=== PATIENT | female | born 1940 | race African-American/Black ===

== ENCOUNTER 2017-05-16 20:53 | Emergency (ER) | payer MEDICARE, OTHER ==
[~2017-05-16] VITALS: Ht 162.6 cm; Wt 59.0 kg
[2017-05-16 21:00] VITALS: BP 197/87
--- NOTE | 2017-05-16 21:08 | Emergency Room Report ---
History of Present Illness General Chief Complaint: Pain Source: Patient, Family Member Present Illness HPI This is a 76-year-old female with history of high blood pressure, renal insufficiency and mostly wheelchair-bound. She presents with a head injury. She's fell from a wheelchair and hit her head. No loss of consciousness. This occurred acutely tonight. Also complaining of pain to the left hand. No fever chills denies nausea vomiting. No focal deficit. She is taking aspirin. Allergies: Coded Allergies: NIFEDIPINE (Verified Allergy, Mild, 05/16/17) Patient History Past Medical History: see triage record, old chart reviewed Past Surgical History: other Pertinent Family History: none Social History: Denies: smoking Now: No Immunizations: other Reviewed Nursing Documentation: PMH: Agreed, PSxH: Agreed Nursing Documentation-PMH Hx Hypertension: Yes Hx Diabetes: Yes Hx Cancer: Yes - Breast and thyroid Hx Dialysis: Yes History Of Psychiatric Problem: No Hx Neurological Problems: Yes - Brain surgery Review of Systems Eye: Denies: eye pain, blurred vision ENT: Denies: ear pain, nose congestion, throat swelling Respiratory: Denies: cough, shortness of breath Cardiovascular: Denies: chest pain, palpitations Gastrointestinal: Denies: abdominal pain, diarrhea, nausea, vomiting Musculoskeletal: Denies: back pain, joint pain Skin: Denies: rash Neurological: Denies: headache, numbness Endocrine: Denies: increased thirst, increased urine Hematologic/Lymphatic: Denies: easy bruising All Other Systems: negative except mentioned in HPI Physical Exam Vital Signs Date Time Temp Pulse Resp B/P (MAP) Pulse Ox O2 Delivery O2 Flow Rate FiO2 05/16/17 20:45 80 16 204/102 Room Air vitals with high blood pressure Sp02 EP Interpretation: reviewed, normal General Appearance: well appearing, no apparent distress, alert Head: normocephalic, other - 3 cm hematoma to the midforehead. Eyes: bilateral eye PERRL, bilateral eye EOMI ENT: hearing grossly normal, normal pharynx Neck: full range of motion, supple, no meningismus Respiratory: chest non-tender, lungs clear, normal breath sounds Cardiovascular #1: regular rate, rhythm, no murmur Gastrointestinal: normal bowel sounds, non tender, no mass, no organomegaly, no bruit, non-distended Musculoskeletal: back normal, normal range of motion, other - Tenderness across the fingers on the left hand. No deformity however. Psychiatric: mood/affect normal Skin: warm/dry Medical Decision Making Diagnostic Impression: Primary Impression: Head injury, acute, without loss of consciousness Qualified Codes: S09.90XA - Unspecified injury of head, initial encounter Additional Impressions: Scalp hematoma Qualified Codes: S00.03XA - Contusion of scalp, initial encounter Contusion of left hand including fingers Qualified Codes: S60.222A - Contusion of left hand, initial encounter; S60.00XA - Contusion of unspecified finger without damage to nail, initial encounter ER Course Present with a fall with head injury. She has a scalp hematoma but no intracranial bleed or fracture. We'll discharge home. Other X-Ray Diagnostic Results Other X-Ray Diagnostic Results : X-Ray ordered: X-rays left hand # of Views/Limited Vs Complete: 3 View Indication: Pain EP Interpretation: Yes Interpretation: no dislocation, no soft tissue swelling, no fractures Impression: No acute disease Electronically Signed by: Electronically signed by Leo Alas MD CT/MRI/US Diagnostic Results CT/MRI/US Diagnostic Results : Imaging Test Ordered: CT head Impression read by radiologist. Chronic changes. No acute bleed. Last Vital Signs Date Time Temp Pulse Resp B/P (MAP) Pulse Ox O2 Delivery O2 Flow Rate FiO2 05/16/17 20:45 80 16 204/102 Room Air Status: improved Disposition: XFER SNF Condition: Stable Additional Instructions: Hold aspirin for one week. Followup with your DrMatt in 7 days. Return if symptom worsen. LEO ALAS M.D. May 16, 2017 21:08
[2017-05-16] MEDS ORDERED: Norco 5mg/325mg tab ORAL ONE (21:15)
[2017-05-16] MEDS ORDERED: Acetaminophen 500mg (ES) tab ORAL ONE (21:15)
[2017-05-16] MEDS ORDERED: cloNIDine 0.2mg Tab ORAL ONE (22:00)
[2017-05-17 00:36] VITALS: BP 122/64
--- NOTE | 2017-05-17 09:56 | Diagnostic Imaging Report ---
Indication: Trauma to the head. Headache Technique: Contiguous 5 mm thick transaxial imaging of the head obtained in a Siem[employer] Sensation [address] scanner. Soft tissue and bone windows generated. Automatic Exposure Control was utilized. Total Dose length Product (DLP): [address] Dose Index Volume (CTDIvol): 70.38, 0.15 mGy Comparison: none Findings: There is moderate prominence of the ventricles, basal cisterns, and cerebral sulci consistent with atrophy. Moderate, nonspecific, white matter hypoattenuation is noted throughout the brain consistent with chronic small vessel disease. There is no midline shift, edema, acute hemorrhage, mass effect, or abnormal extra-axial fluid collections. Bones and extra osseous soft tissues are unremarkable. Left parietal craniotomy is noted. There is a frontal cephalhematoma. Impression: No acute intracranial bleed, mass effect or edema. There is a left parietal craniotomy noted. Moderate atrophy of the brain. Evidence of chronic small vessel disease involving white matter tracts. Frontal scalp contusion The CT scanner at [facility] is accredited by the [employer] and the scans are performed using dose optimization techniques as appropriate to a performed exam including Automatic Exposure control.
--- NOTE | 2017-05-17 11:02 | Diagnostic Imaging Report ---
Indication: pain Findings: 3 views of the left hand were obtained. No fracture definitely identified. The bones are osteopenic. Vascular calcifications are present. Generalized joint space narrowing noted throughout the hand and wrist. Impression: No acute injury appreciated
== END 2017-05-17 00:30 ==
LOC: EDBD 20:53 → EMR 21:30
DX: S09.8XXA Other specified injuries of head, initial encounter (principal); S00.03XA Contusion of scalp, initial encounter; S60.222A Contusion of left hand, initial encounter; S60.00XA Contusion of unspecified finger without damage to nail, initial encounter; W05.0XXA Fall from non-moving wheelchair, initial encounter; Y92.199 Unspecified place in other specified residential institution as the place of occurrence of the external cause; I10 Essential (primary) hypertension; E11.9 Type 2 diabetes mellitus without complications; Z85.3 Personal history of malignant neoplasm of breast; Z85.850 Personal history of malignant neoplasm of thyroid; Z98.890 Other specified postprocedural states
CPT/HCPCS: 70450; 99284